=== PATIENT | female | born 1985 | race Caucasian/White ===

== ENCOUNTER → 2018-06-29 06:09 | Day surgery (SDC) | payer BC ==
[~2018-06-29] VITALS: Ht 170.2 cm; Wt 160.0 kg
[~2018-06-29 06:09] MED LIST: CAMILA0.35 MG PO; CELEXA20 MG PO; CLARITIN 10 MG10 MG PO; LISINOPRIL40 MG PO
[2018-06-29 06:33] LABS: HEMATOCRIT 39.2 % (36.0-48.0); HEMOGLOBIN 13.3 g/dL (12-16); MCH 29.6 pg (26.0-34.0); MCHC 33.9 g/dL (31.0-37.0); MCV 87.3 fL (80.0-100.0); MEAN PLATELET VOLUME 9.8 fL (7.4-10.4); RBC 4.49 10x6/uL (4.00-5.40); RDW 12.1 % (11.5-14.5); WBC 6.6 10x3/uL (4.8-10.8)
[2018-06-29 06:59] VITALS: BP 135/81; Ht 170.2 cm; Wt 160.0 kg
[2018-06-29 08:08] LABS: HCG URINE NEGATIVE (NEGATIVE)
--- NOTE | 2018-06-29 10:00 | NUR ---
ALL DC CRITERIA MET. TAKEN OUT VIA W/C AND ASSISTED TO VEHICLE WITH . ADVISED TO CALL OR COME BACK IF ANY PROBLEMS.
--- NOTE | 2018-06-29 10:57 | OP ---
PATIENT NAME: IKER SARMIENTO MEDICAL RECORD: [id number] LOCATION:[facility] ADMISSION DATE: SURGEON: SERJIO SOLIZ DO DATE OF OPERATION: 06/29/2018 PROCEDURE: Colonoscopy with random biopsies. INDICATIONS FOR PROCEDURE: Hematochezia, altered bowel function, lower abdominal pain. SCOPE: Olympus video pediatric colonoscope. MEDICATIONS: Propofol 500 mg IV per anesthesia. ESTIMATED BLOOD LOSS: Minimal. COMPLICATIONS: None. FINDINGS: Informed consent was given. The patient was made comfortable with the above medication. After reaching an adequate level of sedation by slow IV push, the patient was placed on her left side. A digital rectal examination was performed and was normal. The endoscope was then advanced under direct visualization through the rectum to the cecum and terminal ileum. The endoscope was slowly withdrawn and mucosa was carefully examined. The prep quality was good. There were no polyps or diverticula visualized on today's examination. Random cold forceps biopsies were taken to submit for histopathology and to rule out presence of microscopic colitis. Retroflexion was performed in the rectum with a normal-appearing rectal wall. The endoscope was withdrawn from the patient. The patient tolerated the procedure well, and there were no complications. IMPRESSION: Normal mucosa in the terminal ileum and entire colonic mucosa. Random biopsies were taken to submit for histology. PLAN AND RECOMMENDATIONS: 1. Discharge home when recovery parameters are met. 2. Follow up biopsy specimen results. 3. High-fiber diet. 4. Continue current medications and supplements, which have improved bowel habits. 5. Recall colonoscopy at age 45 for colorectal cancer screening. TRANSINT:[id number] Voice Confirmation ID: [id number] DOCUMENT ID: [id number] SERJIO SOLIZ DO at 1057 CC: [id number] DICTATION DATE: 06/29/18 09 CLINICAL AIDE: 06/29/18 0915 [id number] [place] [address]
== END | disposition home or self-care (01) ==
LOC: D.OPS 06:09
PROVIDERS: Anesthesiology; Internal Medicine Gastroenterology
DX: K52.9 Noninfective gastroenteritis and colitis, unspecified (principal); Z01.812 Encounter for preprocedural laboratory examination

== ENCOUNTER → 2018-10-25 07:16 | Outpatient (CLI) | payer BC ==
[2018-06-29 06:59] VITALS: BMI 55.2
[2018-10-25 07:44] LABS: BASOPHILS 0.6 % (0-2); EOSINOPHILS 3.2 % (0-7); HEMATOCRIT 36.7 % (36.0-48.0); HEMOGLOBIN 12.7 g/dL (12-16); IMMATURE GRANULOCYTES 0.3 % (0-5); LYMPHOCYTES 28.3 % (15-50); MCHC 34.6 g/dL (31.0-37.0); MCV 86.6 fL (80.0-100.0); MEAN PLATELET VOLUME 9.6 fL (7.4-10.4); MONOCYTES 8.4 % (2-11); NEUTROPHILS 59.2 % (40-80); PLATELET COUNT 221 10x3/uL (130-400); RBC 4.24 10x6/uL (4.00-5.40); RDW 12.1 % (11.5-14.5); WBC 6.3 10x3/uL (4.8-10.8)
[2018-10-25 08:05] LABS: ALBUMIN 3.5 g/dL (3.4-5.0); ALKALINE PHOSPHATASE 76 U/L (46-116); ALT (SGPT) 28 U/L (10-68); BILIRUBIN - DIRECT 0.07 mg/dL (0.00-0.30); BILIRUBIN - INDIRECT 0.24 mg/dL (0.00-1.00); BILIRUBIN - TOTAL 0.31 mg/dL (0.2-1.3); C-REACTIVE PROTEIN 0.8 mg/dL (0.0-0.9); CALC OSMOLALITY 279 mosm/kg (275-300); CALCIUM 8.6 mg/dL (8.5-10.1); CHLORIDE - SERUM 103 mmol/L (98-107); CREATININE - SERUM 0.7 mg/dL (0.6-1.3); GLUCOSE 92 mg/dL (74-106); POTASSIUM - SERUM 4.2 mmol/L (3.5-5.1); PROTEIN - SERUM 6.6 g/dL (6.4-8.2); SODIUM 140 mmol/L (136-145); UREA NITROGEN 16 mg/dL (7-18); eGFR NON AFRICAN AMERICAN > 90 mL/min (90-120)
[2018-10-25 09:09] LABS: ERYTHROCYTE SEDIMENTATION RATE 9 mm/hr (0-20)
[2018-10-26 11:17] LABS: HEPATITIS C ANTIBODY <0.1 S/CO RAT (0.0-0.9)
== END | disposition home or self-care (01) ==
LOC: D.CT 07:16
PROVIDERS: ATTEND Internal Medicine Gastroenterology
DX: K59.00 Constipation, unspecified (principal); R10.30 Lower abdominal pain, unspecified; K92.1 Melena

== ENCOUNTER → 2019-03-27 07:57 | Outpatient (CLI) | payer BC ==
[2018-06-29 06:59] VITALS: BMI 55.2
[2019-03-27 09:21] LABS: ALBUMIN 3.6 g/dL (3.4-5.0); BILIRUBIN - DIRECT 0.09 mg/dL (0.00-0.30); BILIRUBIN - INDIRECT 0.3 mg/dL (0.00-1.00); BILIRUBIN - TOTAL 0.39 mg/dL (0.2-1.3); PROTEIN - SERUM 6.8 g/dL (6.4-8.2)
== END | disposition home or self-care (01) ==
LOC: D.US 07:57
PROVIDERS: ATTEND Internal Medicine Gastroenterology
DX: K76.0 Fatty (change of) liver, not elsewhere classified (principal)

== ENCOUNTER → 2020-01-15 07:56 | Outpatient (CLI) | payer BC ==
[2018-06-29 06:59] VITALS: BMI 55.2
[2020-01-15 09:27] LABS: ALBUMIN 3.7 g/dL (3.4-5.0); BILIRUBIN - DIRECT 0.12 mg/dL (0.00-0.30); BILIRUBIN - INDIRECT 0.24 mg/dL (0.00-1.00); BILIRUBIN - TOTAL 0.36 mg/dL (0.2-1.3); PROTEIN - SERUM 6.6 g/dL (6.4-8.2)
== END | disposition home or self-care (01) ==
LOC: D.US 07:56
PROVIDERS: ATTEND Internal Medicine Gastroenterology
DX: K76.0 Fatty (change of) liver, not elsewhere classified (principal)